=== PATIENT | male | born 1990 | race Caucasian/White ===

== ENCOUNTER → 2022-09-12 18:10 | Emergency (ER) | payer SELFPAY ==
--- NOTE | 2022-09-12 18:13 | ED.MALEGU ---
HPI - Male Genitourinary General Stated complaint: std testing Time Seen by Provider: 09/12/22 18:12 Source: patient Mode of arrival: ambulatory Limitations: no limitations History of Present Illness HPI Narrative: Yusuf is a 31-year-old male patient presenting to the clinic today requesting STD testing. He reports Related Data Allergies Allergy/AdvReac Type Severity Reaction Status Date / Time pertussis vaccine,adsorbed Allergy Unknown Unverified 03/19/19 18:39 Review of Systems Review of Systems: Pertinent positives per HPI. Patient denies any fever, chills, rash, headache, visual changes, dizziness, cough, runny nose, sore throat, shortness of breath, chest pain, palpitations, nausea, vomiting, diarrhea, constipation, abdominal pain, or any urinary issues. PMFSH Comments At the time of my signature, I reviewed and agree with the nursing past medical, surgical, social, and family history. There is no relevant family history pertinent to the patient complaint. Exam Narrative: General: Well-developed, well nourished, in no apparent distress. Head: Normocephalic, atraumatic. Cardio: Regular rate and rhythm, s1 and s2 normal, no murmur appreciated. Resp: Clear to auscultation bilaterally, no rhonchi, rales, wheezing or rubs. Abdomen: Soft, pliable, bowel sounds present in all quadrants, non-tender to palpation, no organomegly, no CVAT tenderness. : Deferred Course Course Emergency Course: Portions of this record may have been created with voice recognition software. Level of Care: Express Care Visit Vital Signs Vital signs: Vital signs reviewed MDM - Male Genitourinary MDM Narrative Medical decision making narrative: At the time of visit patient is resting comfortably on the exam table. Discharge Plan Discharge Patient Disposition: Home, Self-Care Condition: Stable Instructions: Antibiotic Form Follow-up/Referrals: UNKNOWN,DOCTOR [Primary Care Provider] - Quality NIHSS Nursing Documentation ED NIHSS nursing documentation: reviewed/agree
--- NOTE | 2022-09-12 18:21 | PC.NURSE ---
1816- In triage pt stated, to tech he did not have insurance and he wanted to know how much this visit would cost. He also stated he needed a PCN shot and wanted to be checked for syphilis. Pt decided to go to [facility] for syphilis testing.
== END | disposition home or self-care (01) ==
PROVIDERS: Emergency Provider Internal Medicine Hematology & Oncology
DX: Z53.21 Procedure and treatment not carried out due to patient leaving prior to being seen by health care provider (principal)
CPT/HCPCS: 99199

== ENCOUNTER 2024-02-08 17:22 | Emergency (ER) | payer SELFPAY ==
[2024-02-08 17:33] VITALS: BP 144/91; PULSE 91; RESP 18; TEMP 36.7; O2SAT 100
--- NOTE | 2024-02-08 17:34 | ECG_ITS ---
Test Date: 2024-02-08 17:40:24 Measurements Intervals [place] Rate: 92 P: 56 NM: 142 QRS: 25 QRSD: 97 T: 29 QT: 351 QTc: 435 Interpretive Statements SINUS RHYTHM NORMAL ELECTROCARDIOGRAM No previous ECG available for comparison Electronically Signed On 02-08-2024 18:24:09 CDT by Lyndon Lim M.D.
--- NOTE | 2024-02-08 17:35 | ED.GENADULT ---
HPI - General Adult General Chief complaint: Overdose <Bg Castillo APRN - Last Filed: 02/08/24 17:37> Stated complaint: od on cocaine <Bg Castillo APRN - Last Filed: 02/08/24 17:37> Time Seen by Provider: 02/08/24 17:35 <Bg Castillo APRN - Last Filed: 02/08/24 17:37> patient states he used cocaine at 4pm and since then he has felt fatigued and just not right. patient states he has used int he past but never felt like this. patient denies any pain but is having nausea with ambulation. no other complaints PE: A&OX3, LUNGS non-labored, moving all extremities, GCS 15, skin warm and intact <Bg Castillo APRN - Last Filed: 02/08/24 17:37> Source: patient <Susan Salcedo PA-C - Last Filed: 02/08/24 19:53> Mode of arrival: ambulatory <Susan Salcedo PA-C - Last Filed: 02/08/24 19:53> Limitations: no limitations <Susan Sacledo PA-C - Last Filed: 02/08/24 19:53> History of Present Illness HPI narrative: Agree with above HPI. Began feeling ill around 430pm, felt fatigued, brain fog , nauseous, and short of breath. Feeling better now. Breathing feels better. States he has done 5 grams of cocaine over the past 3 days, which is not unusual for him. Typically does cocaine 1-2X per week. Drank ETOH last night, no ETOH today. No other drug use. Denies CP. <Susan Salcedo PA-C - Last Filed: 02/08/24 19:53> Related Data Allergies/adverse reactions: Allergies Allergy/AdvReac Type Severity Reaction Status Date / Time pertussis vaccine,adsorbed Allergy Unknown Unknown Verified 02/08/24 17:32 <Bg Castillo APRN - Last Filed: 02/08/24 17:37> Review of Systems Review of Systems: CONSTITUTIONAL: Denies fever, chills, or sweats. CARDIOVASCULAR: Denies chest pain, palpitations, or edema. RESPIRATORY: See HPI. GASTROINTESTINAL: See HPI. NEUROLOGIC: See HPI. <Susan Salcedo PA-C - Last Filed: 02/08/24 19:53> All systems reviewed & are unremarkable except as noted in HPI and below <Susan Salcedo PA-C - Last Filed: 02/08/24 19:53> PMFSH Social History Social History: Social History Substance use: current Substance use type: crack/cocaine <Bg Castillo APRN - Last Filed: 02/08/24 17:37> Exam Narrative: GENERAL: Well appearing, well-nourished, non-toxic, in no acute distress. HEAD: Normocephalic, atraumatic. EYES: PERRL/EOMI, pupils are not pinpoint. Conjunctiva clear. ENT: MMs dry. Frequent sniffling on exam. No epistaxis RESPIRATORY: Airway patent, respirations nonlabored. Clear to auscultation bilaterally, no rales, rhonchi, wheezing. CARDIOVASCULAR: Regular rate and rhythm without murmurs, rubs, or gallops. Peripheral pulses intact. MUSCULOSKELETAL: Moves all extremities. No gross deformities. SKIN: Warm, dry, normal color. NEURO: A&O X3. Speech clear. Cranial nerves II-XII grossly intact. Steady gait. No ataxic movements. PSYCHIATRIC: Appropriate mood and affect. Normal interaction. <Susan Salcedo PA-C - Last Filed: 02/08/24 19:53> Course Vital Signs Vital signs: Vital Signs Temperature 98.0 F 02/08/24 17:33 Pulse Rate 91 02/08/24 17:33 Respiratory Rate 18 02/08/24 17:33 Blood Pressure 144/91 H 02/08/24 17:33 Pulse Oximetry 100 02/08/24 17:33 Temperature 98.0 F 02/08/24 17:33 Pulse Rate 91 02/08/24 17:33 Respiratory Rate 20 02/08/24 18:09 Blood Pressure 144/91 H 02/08/24 17:33 Pulse Oximetry 99 02/08/24 18:14 Oxygen Delivery Room Air 02/08/24 18:14 <Bg Castillo, YARN DUMPER - Last Filed: 02/08/24 17:37> Vital Signs Temperature 98.0 F 02/08/24 17:33 Pulse Rate 91 02/08/24 17:33 Respiratory Rate 18 02/08/24 17:33 Blood Pressure 144/91 H 02/08/24 17:33 Pulse Oximetry 100 02/08/24 17:33 Temperature 98.0 F 02/08/24 17:33 Pulse Rate 91 02/08/24 17:33 Resp
[2024-02-08 18:09] VITALS: RESP 20
[2024-02-08 18:11] LABS: Basophils Absolute Auto 0.1 K/mm3 (0.0-0.1); Basophils Percent Auto 0.5 % (0.2-1.2); Eosinophils Absolute Auto 0.1 K/mm3 (0-0.3); Eosinophils Percent Auto 0.9 % (0-4.4); Hematocrit 46.5 % (42.0-52.0); Hemoglobin 15.9 g/dL (14.0-18.0); Immature Granulocyte Absolute 0.05 K/mm3 (0.00-0.031); Immature Granulocyte Percent A 0.4 % (0-0.5); Lymphocytes Absolute Auto 1.98 K/mm3 (0.9-3.2); Lymphocytes Percent Auto 17.1 % (18.3-44.2); Mean Corpuscular HGB Conc 34.2 g/dl (32-36); Mean Corpuscular Hemoglobin 30.5 pg (26-34); Mean Corpuscular Volume 89.3 fl (80-100); Mean Platelet Volume 8.4 fl (7.4-10.4); Monocytes Absolute Auto 0.7 K/mm3 (0.1-0.6); Monocytes Percent Auto 6.4 % (2.6-8.5); Neutrophils Absolute Auto 8.6 K/mm3 (1.3-6.7); Neutrophils Percent Auto 74.7 % (45.5-73.1); Platelet Count Result 407 k/mm3 (150-375); Red Blood Count 5.21 M/mm3 (4.6-6.20); Red Cell Distribution Width 12.7 % (11.5-14.5); White Blood Count 11.6 K/mm3 (4.5-10.0)
--- NOTE | 2024-02-08 18:13 | PC.NURSE ---
Pt attempted to give urine sample, reports unable to at this time but will try again shortly.
[2024-02-08 18:14] VITALS: O2SAT 99
[2024-02-08 18:15] LABS: Glucose Point of Care 120 mg/dl (65-105)
[2024-02-08 18:28] LABS: Alanine Aminotransferase 32 U/L (6-50); Alkaline Phosphatase 116 U/L (38-126); Anion Gap 11 mmol/L (4-12); Aspartate Amino Transferase 30 U/L (17-59); Bilirubin,Total 0.7 mg/dL (0.2-1.3); Blood Urea Nitrogen 15 mg/dL (9-20); Calcium 9.3 mg/dL (8.4-10.2); Carbon Dioxide 28 mmol/L (22-30); Chloride 98 mmol/L (98-107); Estimated CRCL calculation 109 ml/min; Estimated Glomerular Filt Rate > 60; Glucose 128 mg/dL (65-110); Magnesium 2.4 mg/dL (1.6-2.3); Potassium 3.9 mmol/L (3.4-5.0); Sodium 137 mmol/L (137-145)
[2024-02-08 18:29] LABS: Acetaminophen < 10 ug/mL (10-30); Ethanol < 10 mg/dL (<10); Salicylate < 1.0 mg/dL (2-20)
[2024-02-08 18:57] LABS: Troponin I < 0.012 ng/mL (0.000-0.034)
--- NOTE | 2024-02-08 19:46 | PC.NURSE ---
This RN walked into pt room, pt not present or in bathrooms. This RN re-checked approx 10-15 min later and pt still not in room. Assumed pt eloped without notice.
== END 2024-02-08 19:46 | disposition left against medical advice (07) ==
PROVIDERS: Nurse Practitioner Family; Emergency Provider Physician Assistant
DX: F14.129 Cocaine abuse with intoxication, unspecified (principal); R53.83 Other fatigue
CPT/HCPCS: 36415; 80053; 80307; 82948; 83735; 84484; 85025; 93005; 99284

== ENCOUNTER 2024-12-27 23:55 | Emergency (ER) | payer MEDICAID, SELFPAY ==
[2024-12-28 01:03] VITALS: BP 131/83; PULSE 97; RESP 16; TEMP 36.6; O2SAT 99
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
[2024-12-28 02:47] VITALS: BP 108/77; PULSE 79; RESP 15; O2SAT 98
[2024-12-28 03:05] LABS: Add Urine Microscopic? YES; Appearance Urine Clear (Clear); Bacteria Urine None Seen /hpf; Bilirubin Urine 1+ (Negative); Blood Urine 3+ (Negative); Color Urine Dark Yellow (Yellow); Glucose Urine UA Negative (Negative); Ketones Urine Negative (Negative); Leukocyte Esterase Ur Trace LEU/UL (Negative); Mucus Urine Present /lpf; Need Manual Microscopic Reviewed; Nitrate Urine Positive (Negative); Non Pathogenic Casts 0-2; Protein Urine 2+ mg/dL (Negative); RBC Urine 21-50 /hpf (0-2); Specific Grav Ur 1.012 (1.001-1.035); Squamous Epithelial Cell Urine None Seen /hpf (Few); WBC Urine 0-5 /hpf (0-3); pH Urine 6.5 (5.0-9.0)
[2024-12-28] MEDS: APIXABAN 5 MG TABLET PO (04:26)
[2024-12-28 05:12] VITALS: BP 108/77; PULSE 79; RESP 15; O2SAT 98
== END 2024-12-28 05:59 | disposition home or self-care (01) ==
PROVIDERS: Emergency Provider Emergency Medicine
DX: T83.098A Other mechanical complication of other urinary catheter, initial encounter (principal); Z87.81 Personal history of (healed) traumatic fracture; F14.90 Cocaine use, unspecified, uncomplicated; Z79.01 Long term (current) use of anticoagulants; Y84.6 Urinary catheterization as the cause of abnormal reaction of the patient, or of later complication, without mention of misadventure at the time of the procedure
CPT/HCPCS: 81001; 87086; 99283; A9270